=== PATIENT | male | born 1960 | race Caucasian/White ===

== ENCOUNTER 2017-06-05 11:46 | Emergency (ER) | payer MEDICAID ==
[~2017-06-05] VITALS: Ht 193 cm; Wt 132.1 kg
[~2017-06-05 11:46] MED LIST: CEFD300C37 PO; DOCU-30 PO; FERR325T20 PO; HYDR12.53 PO; HYDR25TA6 PO; INDO25CA PO; INDO50CA PO; LISI-170 PO; LISI5TAB7 PO; LORA-446 PO; LORA1TAB PO; METF10002 PO
[2017-06-05 12:06] VITALS: BP 198/116
[2017-06-05 13:58] LABS: ASPARTATE AMINO TRANSFERASE 9 U/L (15-37); BLOOD UREA NITROGEN 17 mg/dL (7-18)
== END 2017-06-05 15:23 | disposition left against medical advice (07) ==
LOC: ED 15:17
DX: M1A.0421 Idiopathic chronic gout, left hand, with tophus (tophi) (principal); I10 Essential (primary) hypertension
CPT/HCPCS: 36415; 80053; 81003; 82140; 85025; 85610; 99285